=== PATIENT | female | born 1965 | race African-American/Black ===

== ENCOUNTER 2017-08-01 08:40 | Emergency (ER) | payer OTHER ==
[~2017-08-01] VITALS: Ht 160 cm; Wt 68.0 kg
[2017-08-01] MEDS ORDERED: NORVASC5 MG PO (09:04)
[2017-08-01 09:46] LABS: ABSOLUTE NEUTROPHILS 4.7 thou/uL (1.4-8.2); BASOPHILS 0.3 % (0.0-2.0); EOSINOPHILS 0.3 % (0.0-3.0); HEMATOCRIT 38.7 % (37.0-47.0); LYMPHOCYTES 22.7 % (24.0-44.0); MCH 30.5 pg (26.0-34.0); MCHC 33.7 g/dL (28.0-37.0); MCV 90.4 fL (80.0-100.0); MONOCYTES 4.5 % (1.0-8.0); PLATELET COUNT 322 thou/uL (150-400); POLYS 72.2 % (36.0-66.0); RBC 4.28 mil/uL (4.20-5.00); RDW 14.2 % (10.5-14.5); WBC 6.4 thou/uL (4.0-11.0)
[2017-08-01 09:47] LABS: MANUAL DIFF NO
[2017-08-01 09:48] LABS: CREATININE 0.7 mg/dL (0.6-1.0)
[2017-08-01] MEDS ORDERED: ONDANSETRON HCL4 M2 PO (12:20)
[2017-08-01] MEDS ORDERED: NAPROSYN500 MG PO (12:20)
[2017-08-01] MEDS ORDERED: NORCO 5-325 TA1 EACH PO (12:20)
[2017-08-01 12:30] LABS: URINE BILIRUBIN NEGATIVE (Negative); URINE BLOOD 1+ (Negative); URINE COLOR YELLOW; URINE GLUCOSE-RANDOM* NEGATIVE (Negative); URINE KETONES NEGATIVE (Negative); URINE LEUKOCYTES-REFLEX NEGATIVE (Negative); URINE PROTEIN (DIPSTICK) NEGATIVE (Negative); URINE UROBILINOGEN 0.2 E.U./dl (0.2-1.0)
[2017-08-01 12:39] VITALS: BP 153/87
[2017-08-01 12:51] LABS: CASTS None Seen /LPF (None Seen); SQUAMOUS 4-10 Moderate /LPF (0-3)
[2017-08-01 12:52] LABS: URINE RBC None Seen /HPF (0-2); URINE WBC-REFLEX 0-5 Rare /HPF (0-5)
[2017-08-01 12:53] LABS: CRYSTALS None Seen /LPF (None Seen)
== END 2017-08-01 12:40 | disposition home or self-care (01) ==
LOC: ER 08:40
PROVIDERS: Nurse Practitioner
DX: D25.9 Leiomyoma of uterus, unspecified (principal); I10 Essential (primary) hypertension